=== PATIENT | male | born 1965 | race Caucasian/White ===

== ENCOUNTER 2017-09-01 22:06 | Inpatient (IN) | payer MEDICAID, OTHER ==
[2017-09-01] MEDS: SOD CHLORIDE 0.9% 1,000 ML IV (22:15)
[2017-09-01 22:42] LABS: ADD MAN DIFF? NO; BASOPHIL # 0.1 10^3/ul (0.0-0.1); BASOPHILS % 0.5 % (0.0-2.0); EOSINOPHILS # 0.1 10^3/ul (0.0-0.5); EOSINOPHILS % 0.6 % (0.0-7.0); HEMATOCRIT 43.7 % (42.0-52.0); HEMOGLOBIN 15.1 g/dl (14.0-18.0); LYMPHOCYTES # 2.8 10^3/ul (0.8-2.9); LYMPHOCYTES % 22.1 % (15.0-51.0); MEAN CORPUSCULAR HGB CONC 34.6 g/dl (32.0-37.0); MEAN CORPUSCULAR VOLUME 89.7 fl (82.0-101.0); MEAN PLATELET VOLUME 12.3 fl (7.4-10.4); MONOCYTE # 1.2 10^3/ul (0.3-0.9); MONOCYTES % 9.2 % (0.0-11.0); NEUTROPHIL # 8.5 10^3/ul (1.6-7.5); NEUTROPHILS % 67.3 % (39.0-77.0); PLATELET COUNT 217 10^3/UL (140-415); RED BLOOD COUNT 4.87 10^6/ul (4.70-6.10); RED CELL DISTRIBUTION WIDTH 13.2 % (11.5-14.5)
[2017-09-01 22:42] LABS: WHITE BLOOD COUNT 12.6 10^3/ul (4.8-10.8)
[2017-09-01 22:48] LABS: ALANINE AMINOTRANSFERASE 39 IU/L (13-69); ALBUMIN 4.1 g/dl (3.3-4.9); ALBUMIN/GLOBULIN RATIO 1.24; ALKALINE PHOSPHATASE 89 IU/L (42-121); ANION GAP 15 (8-16); ASPARTATE AMINO TRANSFERASE 24 IU/L (15-46); BILIRUBIN,INDIRECT 0.4 mg/dl (0-1.1); BILIRUBIN,TOTAL 0.4 mg/dl (0.2-1.3); BLOOD UREA NITROGEN 19 mg/dl (7-20); CARBON DIOXIDE 24 mmol/L (21-31); CHLORIDE 107 mmol/L (97-110); GLUCOSE 107 mg/dl (70-220); SODIUM 142 mmol/L (135-144); TOTAL PROTEIN 7.4 g/dl (6.1-8.1)
[2017-09-01 22:53] LABS: ETHANOL < 10.0 mg/dl
[2017-09-01 23:09] LABS: TROPONIN-I < 0.012 ng/ml (0.00-0.12)
[2017-09-01] MEDS: KETOROLAC 30 MG INJ IV (23:21)
[2017-09-01] MEDS: SOD CHLORIDE 0.9% 100 ML (23:33)
[2017-09-01] MEDS: IODIXANOL LOCM 100 ML BTL (23:33)
[2017-09-02 00:26] LABS: INR 1.06; PROTIME 13.9 Sec (11.9-14.9); PT RATIO 1.1
[2017-09-02 00:27] LABS: PARTIAL THROMBOPLASTIN TIME 29.5 Sec (25.0-35.0)
[2017-09-02 03:26] LABS: AMPHETAMINE/METHAMPHETAMINE Negative (NEGATIVE); BARBITURATES Negative (NEGATIVE); BENZODIAZEPINES Negative (NEGATIVE); CANNABINOIDS Positive (NEGATIVE); COCAINE Negative (NEGATIVE); OPIATES Positive (NEGATIVE)
[2017-09-02] MEDS ORDERED: NACL 0.9% 3 ML SYG IV (06:00)
[2017-09-02] MEDS ORDERED: NITROGLYCERIN (SL) 0.4 MG TAB SL (06:00)
[2017-09-02] MEDS ORDERED: ACETAMINOPHEN 325 MG TAB PO (06:00)
[2017-09-02] MEDS ORDERED: ONDANSETRON 4 MG INJ IV (06:00)
[2017-09-02 06:01] LABS: ADD MAN DIFF? NO
[2017-09-02 06:29] LABS: BASOPHILS % 0.4 % (0.0-2.0); EOSINOPHILS # 0.1 10^3/ul (0.0-0.5); EOSINOPHILS % 1.1 % (0.0-7.0); HEMATOCRIT 38.9 % (42.0-52.0); HEMOGLOBIN 13.1 g/dl (14.0-18.0); LYMPHOCYTES # 1.7 10^3/ul (0.8-2.9); LYMPHOCYTES % 22.6 % (15.0-51.0); MEAN CORPUSCULAR HEMOGLOBIN 30.8 pg (29.0-33.0); MEAN CORPUSCULAR HGB CONC 33.7 g/dl (32.0-37.0); MEAN CORPUSCULAR VOLUME 91.5 fl (82.0-101.0); MEAN PLATELET VOLUME 11.4 fl (7.4-10.4); MONOCYTE # 0.8 10^3/ul (0.3-0.9); MONOCYTES % 10.8 % (0.0-11.0); NEUTROPHIL # 4.8 10^3/ul (1.6-7.5); PLATELET COUNT 179 10^3/UL (140-415); RED BLOOD COUNT 4.25 10^6/ul (4.70-6.10); RED CELL DISTRIBUTION WIDTH 13.3 % (11.5-14.5)
[2017-09-02 06:29] LABS: WHITE BLOOD COUNT 7.4 10^3/ul (4.8-10.8)
[2017-09-02 06:44] LABS: ALANINE AMINOTRANSFERASE 34 IU/L (13-69); ALBUMIN 3.4 g/dl (3.3-4.9); ALBUMIN/GLOBULIN RATIO 1.13; ALKALINE PHOSPHATASE 77 IU/L (42-121); ANION GAP 12 (8-16); ASPARTATE AMINO TRANSFERASE 15 IU/L (15-46); BILIRUBIN,INDIRECT 0.5 mg/dl (0-1.1); BILIRUBIN,TOTAL 0.5 mg/dl (0.2-1.3); BLOOD UREA NITROGEN 20 mg/dl (7-20); CALCIUM 9.1 mg/dl (8.4-10.2); CARBON DIOXIDE 28 mmol/L (21-31); CHLORIDE 109 mmol/L (97-110); CHOL/HDL RATIO 3.9 RATIO; CHOLESTEROL 129 mg/dl (100-200); GLUCOSE 98 mg/dl (70-220); HDL CHOLESTEROL 33 mg/dl (28-71); LDL CHOLESTEROL,CALCULATED 85 mg/dl; MAGNESIUM 2.2 mg/dl (1.7-2.5); POTASSIUM 4.3 mmol/L (3.5-5.1); SODIUM 145 mmol/L (135-144); TOTAL PROTEIN 6.4 g/dl (6.1-8.1); TRIGLYCERIDES 53 mg/dl (0-149)
[2017-09-02 06:55] LABS: CK-MB 0.43 ng/ml (0.0-2.4); TROPONIN-I < 0.012 ng/ml (0.00-0.12)
[2017-09-02 07:02] LABS: CREATINE KINASE 43 IU/L (23-200)
[2017-09-02 07:10] LABS: THYROID STIMULATING HORMONE 0.343 MIU/L (0.465-4.680)
[2017-09-02] MEDS: morphine 2 MG INJ IV (07:54)
[2017-09-02 08:05] LABS: HEMOGLOBIN A1C 4.9 % (0-5.9)
[2017-09-02] MEDS: ASPIRIN 81 MG TAB PO (09:22)
[2017-09-02] MEDS: ENOXAPARIN 40 MG/0.4 ML SYG SC (09:24)
[2017-09-02 12:19] LABS: CREATINE KINASE 42 IU/L (23-200)
[2017-09-02 12:31] LABS: CK INDEX 0.6
[2017-09-02 12:32] LABS: CK-MB 0.25 ng/ml (0.0-2.4); TROPONIN-I < 0.012 ng/ml (0.00-0.12)
== END 2017-09-02 12:11 | disposition home or self-care (01) | DRG 641 ==
LOC: TEL 23:59 → E/R 09-02 12:40
DX: E87.0 Hyperosmolality and hypernatremia (principal); E86.0 Dehydration; R55 Syncope and collapse; R07.89 Other chest pain; M54.9 Dorsalgia, unspecified; G89.29 Other chronic pain; F41.9 Anxiety disorder, unspecified
CPT/HCPCS: 36415; 70450; 71010; 71275; 80053; 80061; 80306; 80307; 82550; 82553; 82962; 83036; 83735; 84443; 84484; 85025; 85610; 85730; 93005; 93306; 93880; 93970; 96372; 96374; 96375; 99285-25